=== PATIENT | female | born 1940 | race Caucasian/White ===

== ENCOUNTER 2019-01-02 21:04 | Emergency (ER) | payer MEDICARE, OTHER ==
[~2019-01-02] VITALS: Ht 170.2 cm; Wt 62.7 kg
[2019-01-02] MEDS ORDERED: morphine 4 MG/ML inj SYRINge IV ONE (21:45)
[2019-01-02 22:30] VITALS: BP 148/82
== END 2019-01-02 22:49 | disposition home or self-care (01) ==
LOC: ER 21:04
DX: S42.291A Other displaced fracture of upper end of right humerus, initial encounter for closed fracture (principal); E78.00 Pure hypercholesterolemia, unspecified; I10 Essential (primary) hypertension; F17.200 Nicotine dependence, unspecified, uncomplicated; W18.30XA Fall on same level, unspecified, initial encounter; Y93.89 Activity, other specified; Y92.89 Other specified places as the place of occurrence of the external cause; Y99.9 Unspecified external cause status
CPT/HCPCS: 29105; 73030; 96374; 99284; J2270

== ENCOUNTER 2020-09-28 05:44 | Emergency (ER) | payer BC, MEDICARE, OTHER ==
[~2020-09-28] VITALS: Ht 170.2 cm; Wt 60.5 kg
[2020-09-28] MEDS ORDERED: normal saline 1000ML IV soln IVB ONE (06:35)
[2020-09-28 06:45] LABS: BASOPHILS % (AUTO) 0.6 % (0-1); EOSINOPHILS # (AUTO) 0.1 X10'3 (0-0.9); EOSINOPHILS % (AUTO) 1.3 % (0-6); HEMATOCRIT 34.5 % (35.0-45.0); HEMOGLOBIN 11.6 g/dl (12.0-16.0); LYMPHOCYTES # (AUTO) 2.2 X10'3 (1.1-4.8); LYMPHOCYTES % (AUTO) 27.2 % (21-51); MEAN CORPUSCULAR HEMOGLOBIN 33.6 PG (27.0-31.0); MEAN CORPUSCULAR HGB CONC 33.6 g/dL (33.0-36.5); MEAN CORPUSCULAR VOLUME 99.9 FL (78-98); MEAN PLATELET VOLUME 7.8 FL (7.4-10.4); MONOCYTES # (AUTO) 1.3 X10'3 (0-0.9); MONOCYTES % (AUTO) 15.5 % (2-12); NEUTROPHILS # (AUTO) 4.5 X10'3 (1.8-7.7); NEUTROPHILS % (AUTO) 55.4 % (42-75); PLATELET COUNT 255 X10'3 (140-440); RED BLOOD COUNT 3.46 X10'6 (4.20-5.60); RED CELL DISTRIBUTION WIDTH 13.7 % (11.5-14.5); WHITE BLOOD COUNT 8.1 X10'3 (4.5-11.0)
[2020-09-28 06:56] LABS: ALANINE AMINOTRANSFERASE 21 U/L (12-78); ALBUMIN 2.2 G/DL (3.4-5.0); ALBUMIN/GLOBULIN RATIO 0.5 (1.1-1.5); ALKALINE PHOSPHATASE 146 IU/L (46-116); ANION GAP 9 (8-16); ASPARTATE AMINO TRANSFERASE 33 U/L (10-37); BILIRUBIN,TOTAL 0.7 MG/DL (0.1-1.0); BLOOD UREA NITROGEN 15 MG/DL (7-18); BUN/CREATININE RATIO 13.3 (6.6-38.0); CALCIUM 8.5 MG/DL (8.5-10.1); CHLORIDE 98 MMOL/L (99-107); CREATININE 1.13 MG/DL (0.40-0.90); POTASSIUM 4.2 MMOL/L (3.5-5.1); SODIUM 133 MMOL/L (135-145); TOTAL CARBON DIOXIDE 25.7 MMOL/L (24-32); TOTAL PROTEIN 6.9 G/DL (6.4-8.2); eGFR 47 ML/MIN
[2020-09-28 06:57] LABS: GLUCOSE 113 MG/DL (70-104)
[2020-09-28 07:07] LABS: ETHANOL < 0.010 GM/DL (0.0-0.010)
--- NOTE | 2020-09-28 07:12 | NUR ---
to ct w/ [facility] PCT assisting w/ transfer d/t c-collar placement
[2020-09-28 08:50] LABS: CLARITY,URINE CLOUDY (Clear); GLUCOSE, URINE NEGATIVE (Neg); KETONES,URINE TRACE mg/dl (Neg); LEUKOCYTE ESTERASE ,URINE NEGATIVE (Neg); NITRITES, URINE NEGATIVE (Neg); OCCULT BLOOD,URINE NEGATIVE (Neg); PROTEIN,URINE TRACE mg/dl (Neg); UROBILINOGEN,URINE 0.2 E.U/dL (0.2-1.0)
[2020-09-28 08:51] LABS: COLOR,URINE DARK YELLOW (Yellow); UA COLLECTION TYPE STRAIGHT CATH
[2020-09-28 08:56] LABS: BACTERIA,URINE FEW /HPF (Neg); RBC,URINE NONE SEEN /HPF (0-2); SQUAMOUS EPITHELIAL CELL,UR FEW /LPF (FEW); WBC,URINE 0-4 /HPF (0-4)
[2020-09-28 08:57] LABS: HYALINE CASTS >30 /LPF (NEGATIVE); MUCUS STRANDS FEW /LPF (Neg); TRANSITIONAL EPI CELLS,URINE FEW /HPF; YEAST MODERATE /HPF (NEGATIVE)
--- NOTE | 2020-09-28 08:57 | NUR ---
DISCUSED PT'S C/O PAIN W/ JAMIE HUSTON; NO NEW ORDERS RECEIVED @ THIS TIME
[2020-09-28 09:02] LABS: URINE AMPHETAMINE SCREEN NEGATIVE (Neg); URINE BARBITUATE SCREEN NEGATIVE (Neg); URINE BENZODIAZEPINES SCREEN NEGATIVE (Neg); URINE CANNABINOID SCREEN NEGATIVE (Neg); URINE COCAINE SCREEN NEGATIVE (Neg); URINE METHADONE SCREEN NEGATIVE (Neg); URINE OPIATE SCREEN POSITIVE (Neg); URINE PHENCYCLIDINE SCREEN NEGATIVE (Neg)
--- NOTE | 2020-09-28 11:09 | NUR ---
relieving RN for break, pt is resting quietly on gurney, eating lunch
[2020-09-28] MEDS ORDERED: QUET25TA PO (12:09)
[2020-09-28 13:45] VITALS: BP 112/76
== END 2020-09-28 13:46 | disposition home or self-care (01) ==
LOC: ER 05:44
DX: F05 Delirium due to known physiological condition (principal); R44.3 Hallucinations, unspecified; F03.90 Unspecified dementia, unspecified severity, without behavioral disturbance, psychotic disturbance, mood disturbance, and anxiety; E78.00 Pure hypercholesterolemia, unspecified; I10 Essential (primary) hypertension; G89.29 Other chronic pain; Z87.891 Personal history of nicotine dependence; Z72.89 Other problems related to lifestyle; Z79.899 Other long term (current) drug therapy
CPT/HCPCS: 36415; 70450; 71045; 80053; 80305; 80320; 81001; 82140; 82948; 84443; 85025; 99285; J7030

== ENCOUNTER 2020-10-15 08:34 | Emergency (ER) | payer BC ==
[~2020-10-15] VITALS: Ht 170.2 cm; Wt 60.5 kg
[~2020-10-15 08:34] MED LIST: QUET25TA PO
[2020-10-15] MEDS ORDERED: normal saline 1000ML IV soln IVB ONE (08:55)
[2020-10-15 09:30] LABS: BASOPHILS # (AUTO) 0.1 X10'3 (0-0.2); BASOPHILS % (AUTO) 0.7 % (0-1); EOSINOPHILS # (AUTO) 0.1 X10'3 (0-0.9); EOSINOPHILS % (AUTO) 1.2 % (0-6); HEMATOCRIT 32.8 % (35.0-45.0); HEMOGLOBIN 10.8 g/dl (12.0-16.0); MEAN CORPUSCULAR HEMOGLOBIN 33.1 PG (27.0-31.0); MEAN CORPUSCULAR VOLUME 100.3 FL (78-98); MEAN PLATELET VOLUME 7.8 FL (7.4-10.4); MONOCYTES # (AUTO) 1.2 X10'3 (0-0.9); MONOCYTES % (AUTO) 15.9 % (2-12); NEUTROPHILS # (AUTO) 4.4 X10'3 (1.8-7.7); NEUTROPHILS % (AUTO) 56.2 % (42-75); PLATELET COUNT 244 X10'3 (140-440); RED BLOOD COUNT 3.27 X10'6 (4.20-5.60); RED CELL DISTRIBUTION WIDTH 13.8 % (11.5-14.5); WHITE BLOOD COUNT 7.8 X10'3 (4.5-11.0)
[2020-10-15 10:10] LABS: ALANINE AMINOTRANSFERASE 24 U/L (12-78); ALBUMIN 1.9 G/DL (3.4-5.0); ALBUMIN/GLOBULIN RATIO 0.4 (1.1-1.5); ALKALINE PHOSPHATASE 109 IU/L (46-116); ANION GAP 8 (8-16); ASPARTATE AMINO TRANSFERASE 32 U/L (10-37); BILIRUBIN,TOTAL 0.5 MG/DL (0.1-1.0); BLOOD UREA NITROGEN 9 MG/DL (7-18); CALCIUM 8.3 MG/DL (8.5-10.1); CHLORIDE 102 MMOL/L (99-107); CREATININE 0.69 MG/DL (0.40-0.90); GLUCOSE 111 MG/DL (70-104); POTASSIUM 4.4 MMOL/L (3.5-5.1); SODIUM 139 MMOL/L (135-145); TOTAL CARBON DIOXIDE 28.7 MMOL/L (24-32); TOTAL PROTEIN 6.5 G/DL (6.4-8.2); eGFR 82 ML/MIN
[2020-10-15 10:13] LABS: TROPONIN I < 0.04 NG/ML (0.0-0.05)
[2020-10-15 10:29] LABS: PLATELET ESTIMATE NORMAL; TOTAL CELLS COUNTED 100
[2020-10-15 11:15] LABS: CLARITY,URINE SLIGHTLY CLOUDY (Clear); COLOR,URINE YELLOW (Yellow); GLUCOSE, URINE NEGATIVE (Neg); KETONES,URINE NEGATIVE (Neg); LEUKOCYTE ESTERASE ,URINE NEGATIVE (Neg); NITRITES, URINE NEGATIVE (Neg); OCCULT BLOOD,URINE NEGATIVE (Neg); PROTEIN,URINE NEGATIVE (Neg); UA COLLECTION TYPE STRAIGHT CATH; UROBILINOGEN,URINE 0.2 E.U/dL (0.2-1.0)
[2020-10-15 11:28] LABS: SQUAMOUS EPITHELIAL CELL,UR MODERATE /LPF (FEW); TRANSITIONAL EPI CELLS,URINE MODERATE /HPF
[2020-10-15 11:29] LABS: BACTERIA,URINE 1+ /HPF (Neg); RBC,URINE 0-2 /HPF (0-2); WBC,URINE 0-4 /HPF (0-4)
--- NOTE | 2020-10-15 12:09 | NUR ---
BOB FROM CALLED, INFORMED THAT FAMILY IS REQUESTING PT GO TO A SNF IF NOT BEING ADMITTED. STATED THAT CASE MANAGEMENT WILL BE SENDING OUT REFERALS TO LOCAL SNFs. Addendum: 10/15/20 at 1222 by ROCIO ABOVE NOTE CHARTED BY DARELL POOLE RNC
--- NOTE | 2020-10-15 12:28 | NUR ---
CM WAS NOTIFIED THAT PATIENT HAS 3 MN QUALIFYING STAY AT [facility], FAMILY REQUESTING REHAB. REFERRALS TO ALL LOCAL REHABS SENT.
--- NOTE | 2020-10-15 13:10 | NUR ---
CASE MANAGEMENT HERE, SPOKE WITH PT'S RN AND DR KRUGER. STATED THAT DUE TO PT'S INSURANCE IT WAS GOING TO BE DIFFICULT TO GET A SNF PLACEMENT. STATES THAT SHE DID SEND OUT REFERALS, HOWEVER, HER INSURANCE WILL REQUIRE AN AUTHROIZATION THAT COULD TAKE A DAY TO OBTAIN. DR KRUGER AWARE AND WILL REQUEST A HOSPITALIST TO ADMIT PT.
[2020-10-15] MEDS ORDERED: OMEP40CA21 PO (13:21)
[2020-10-15] MEDS ORDERED: METO-411 PO (13:21)
[2020-10-15] MEDS ORDERED: CHLO5CAP3 PO (13:21)
[2020-10-15] MEDS ORDERED: LIDO40SO TP (13:21)
[2020-10-15] MEDS ORDERED: MAGN200T8 PO (13:21)
[2020-10-15] MEDS ORDERED: LISI20TA28 PO (13:21)
[2020-10-15] MEDS ORDERED: CYAN-51 PO (13:21)
[2020-10-15] MEDS ORDERED: HYDR50TA65 PO (13:21)
[2020-10-15] MEDS ORDERED: QUET25TA34 PO (13:21)
[2020-10-15] MEDS ORDERED: DULO30CA52 PO (13:21)
[2020-10-15] MEDS ORDERED: FOLI0.8T3 PO (13:21)
[2020-10-15] MEDS ORDERED: PRAV20TA4 PO (13:21)
[2020-10-15] MEDS ORDERED: THIA50TA10 PO (13:21)
[2020-10-15] MEDS ORDERED: GABA-530 PO (13:21)
[2020-10-15] MEDS ORDERED: LISI40TA13 PO (13:21)
--- NOTE | 2020-10-15 14:45 | NUR ---
Called pt.'s daughter, left a message that pt. was ready for ride home.
--- NOTE | 2020-10-15 17:32 | NUR ---
Attempted to contact pt.'s family member, called home number that is listed, cell phone number not working. No picker/puller at home number.
--- NOTE | 2020-10-15 18:30 | NUR ---
CALLED PT'S DAUGHTER, SHE STATES PT IS NOT TO COME HOME. SHE HAS BEEN IN CONTACT WITH CASE MANAGEMENT AND (PT'S PCP) WHO BOTH WOULD LIKE THE PT ADMITTED AND PLACED, THEY ARE UNABLE TO TAKE CARE OF HER AND DO NOT WANT HER TO COME BACK HOME AT THIS TIME.
--- NOTE | 2020-10-15 18:41 | NUR ---
SPOKE TO DR. ARANGO UPDATED ON PT AND DAUGHTER'S WISH FOR ADMISSION
--- NOTE | 2020-10-15 20:21 | NUR ---
Spoke with Pt's daughter, informed her of the need to acquire bedside commode for pt., pt.'s daughter stated that they have one already. Pt.'s daughter will be comming to pick pt. up at ~2120
[2020-10-15 21:26] VITALS: BP 172/82
== END 2020-10-15 21:00 | disposition home or self-care (01) ==
LOC: ER 08:34
DX: S51.812A Laceration without foreign body of left forearm, initial encounter (principal); R29.6 Repeated falls; R53.1 Weakness; F51.5 Nightmare disorder; F03.90 Unspecified dementia, unspecified severity, without behavioral disturbance, psychotic disturbance, mood disturbance, and anxiety; E78.00 Pure hypercholesterolemia, unspecified; I10 Essential (primary) hypertension; G89.29 Other chronic pain; Z72.89 Other problems related to lifestyle; Z79.899 Other long term (current) drug therapy; Z87.81 Personal history of (healed) traumatic fracture; X58.XXXA Exposure to other specified factors, initial encounter; Y93.89 Activity, other specified; Y92.89 Other specified places as the place of occurrence of the external cause; Y99.8 Other external cause status
CPT/HCPCS: 36415; 70450; 71045; 72125; 80053; 81001; 84484; 85007; 85025; 93005; 97161; 97530; 99285; J7030; 96360

== ENCOUNTER 2020-11-30 07:15 | Emergency (ER) | payer BC ==
[~2020-11-30] VITALS: Ht 170.2 cm; Wt 60.0 kg
[~2020-11-30 07:15] MED LIST changes: +CHLO5CAP3 PO; +CYAN-51 PO; +DULO30CA52 PO; +FOLI0.8T3 PO; +GABA-530 PO; +HYDR50TA65 PO; +LIDO40SO TP; +LISI20TA28 PO; +MAGN200T8 PO; +METO-411 PO; +OMEP40CA21 PO; +PRAV20TA4 PO; -QUET25TA PO; +QUET25TA36 PO; +THIA50TA10 PO
[2020-11-30 08:49] LABS: BASOPHILS % (AUTO) 0.6 % (0-1); EOSINOPHILS # (AUTO) 0.1 X10'3 (0-0.9); EOSINOPHILS % (AUTO) 0.8 % (0-6); HEMATOCRIT 33.9 % (35.0-45.0); HEMOGLOBIN 11.1 g/dl (12.0-16.0); LYMPHOCYTES # (AUTO) 1.4 X10'3 (1.1-4.8); LYMPHOCYTES % (AUTO) 16.6 % (21-51); MEAN CORPUSCULAR HEMOGLOBIN 30.4 PG (27.0-31.0); MEAN CORPUSCULAR HGB CONC 32.8 g/dL (33.0-36.5); MEAN CORPUSCULAR VOLUME 92.7 FL (78-98); MEAN PLATELET VOLUME 8.1 FL (7.4-10.4); MONOCYTES # (AUTO) 1.3 X10'3 (0-0.9); MONOCYTES % (AUTO) 15.3 % (2-12); NEUTROPHILS # (AUTO) 5.8 X10'3 (1.8-7.7); NEUTROPHILS % (AUTO) 66.7 % (42-75); PLATELET COUNT 248 X10'3 (140-440); RED BLOOD COUNT 3.66 X10'6 (4.20-5.60); RED CELL DISTRIBUTION WIDTH 13.6 % (11.5-14.5); WHITE BLOOD COUNT 8.7 X10'3 (4.5-11.0)
[2020-11-30 08:50] LABS: ALBUMIN 2.1 G/DL (3.4-5.0); ANION GAP 8 (8-16); BLOOD UREA NITROGEN 9 MG/DL (7-18); BUN/CREATININE RATIO 9.8 (6.6-38.0); CALCIUM 8.4 MG/DL (8.5-10.1); CHLORIDE 101 MMOL/L (99-107); CREATININE 0.92 MG/DL (0.40-0.90); GLUCOSE 111 MG/DL (70-104); POTASSIUM 3.4 MMOL/L (3.5-5.1); SODIUM 140 MMOL/L (135-145); TOTAL CARBON DIOXIDE 30.6 MMOL/L (24-32); eGFR 59 ML/MIN
--- NOTE | 2020-11-30 12:00 | NUR ---
Pt is awake and alert. Confused to date and time. Pt has multiple skin tears on B UE.
--- NOTE | 2020-11-30 15:20 | NUR ---
Straight cath for urine specimen. Pt tolerated procedure. +stool smear, brown. Dressings to B LE and L UE are intact.
[2020-11-30 15:52] LABS: CLARITY,URINE CLEAR (Clear); COLOR,URINE AMBER (Yellow); GLUCOSE, URINE NEGATIVE (Neg); KETONES,URINE NEGATIVE (Neg); LEUKOCYTE ESTERASE ,URINE TRACE (Neg); NITRITES, URINE NEGATIVE (Neg); OCCULT BLOOD,URINE NEGATIVE (Neg); PROTEIN,URINE 30 mg/dl (Neg); UROBILINOGEN,URINE 0.2 E.U/dL (0.2-1.0)
[2020-11-30 15:53] LABS: UA COLLECTION TYPE FOLEY CATH
[2020-11-30 16:06] LABS: HYALINE CASTS 0-3 /LPF (NEGATIVE); MUCUS STRANDS FEW /LPF (Neg); SQUAMOUS EPITHELIAL CELL,UR FEW /LPF (FEW)
[2020-11-30 16:08] LABS: CAL OXALATE CRYSTALS FEW /HPF (NEGATIVE)
[2020-11-30 16:09] LABS: BACTERIA,URINE FEW /HPF (Neg); RBC,URINE 0-2 /HPF (0-2); WBC,URINE 0-4 /HPF (0-4)
--- NOTE | 2020-11-30 18:15 | NUR ---
Transported home by [facility].
[2020-11-30 18:25] VITALS: BP 164/73
== END 2020-11-30 18:15 | disposition home or self-care (01) ==
LOC: ER 07:15
DX: S00.83XA Contusion of other part of head, initial encounter (principal); E78.00 Pure hypercholesterolemia, unspecified; I10 Essential (primary) hypertension; G89.29 Other chronic pain; F41.9 Anxiety disorder, unspecified; F32.9 Major depressive disorder, single episode, unspecified; Z79.899 Other long term (current) drug therapy; W19.XXXA Unspecified fall, initial encounter; Y93.89 Activity, other specified; Y92.89 Other specified places as the place of occurrence of the external cause; Y99.8 Other external cause status
CPT/HCPCS: 51701; 70450; 71045; 72125; 72128; 72131; 73080; 80048; 81001; 85025; 99285